=== PATIENT | female | born 1940 | race Caucasian/White ===

== ENCOUNTER 2022-04-14 09:44 | Day surgery (SDC) | payer MEDICARE ==
[~2022-04-14] VITALS: Ht 167.6 cm; Wt 79.0 kg
[2022-04-14] VITALS (7 sets, daily range): BP systolic 126–147; BP diastolic 53–68
[2022-04-14] MEDS ORDERED: normal saline 1000ml 1,000 ML IV PRN (10:15)
[2022-04-14] MEDS ORDERED: RIVA20TA PO (10:16)
[2022-04-14 10:34] LABS: BASOPHILS # (AUTO) 0.1 X10'3 (0-0.2); BASOPHILS % (AUTO) 1.4 % (0-1); EOSINOPHILS # (AUTO) 0.1 X10'3 (0-0.9); EOSINOPHILS % (AUTO) 1.5 % (0-6); HEMATOCRIT 39.7 % (35.0-45.0); HEMOGLOBIN 13.4 g/dl (12.0-16.0); LYMPHOCYTES # (AUTO) 1.4 X10'3 (1.1-4.8); LYMPHOCYTES % (AUTO) 23.4 % (21-51); MEAN CORPUSCULAR HEMOGLOBIN 30.7 PG (27.0-31.0); MEAN CORPUSCULAR HGB CONC 33.9 g/dL (33.0-36.5); MEAN CORPUSCULAR VOLUME 90.6 FL (78-98); MEAN PLATELET VOLUME 9.1 FL (7.4-10.4); MONOCYTES # (AUTO) 0.4 X10'3 (0-0.9); MONOCYTES % (AUTO) 6.8 % (2-12); NEUTROPHILS # (AUTO) 3.9 X10'3 (1.8-7.7); NEUTROPHILS % (AUTO) 66.9 % (42-75); PLATELET COUNT 201 X10'3 (140-440); RED BLOOD COUNT 4.38 X10'6 (4.20-5.60); RED CELL DISTRIBUTION WIDTH 13.4 % (11.5-14.5); WHITE BLOOD COUNT 5.9 X10'3 (4.5-11.0)
[2022-04-14 10:42] LABS: ALBUMIN 3.7 G/DL (3.4-5.0); ANION GAP 7 (8-16); BLOOD UREA NITROGEN 18 MG/DL (7-18); BUN/CREATININE RATIO 24.3 (6.6-38.0); CALCIUM 9.4 MG/DL (8.5-10.1); CHLORIDE 106 MMOL/L (99-107); CREATININE 0.74 MG/DL (0.40-0.90); GLUCOSE 109 MG/DL (70-104); POTASSIUM 4.3 MMOL/L (3.5-5.1); SODIUM 142 MMOL/L (135-145); TOTAL CARBON DIOXIDE 28.8 MMOL/L (24-32); eGFR 75 ML/MIN
[2022-04-14] MEDS ORDERED: ceFAZolin inj. 2,000 MG in normal saline soln 50 ML IV ONE (10:50)
[2022-04-14] MEDS ORDERED: VANCOMYCIN 1,500MG in NS 300 ML IVPB IV ONE (10:50)
[2022-04-14] MEDS ORDERED: LIDOCAINE 2% w/EPI 1:100:000 30mL injection MDV**cath lab 1 only ONE (11:58)
[2022-04-14] MEDS ORDERED: vancomycin 1,000mg inj ONE (11:58)
[2022-04-14] MEDS ORDERED: fentaNYL/PF 50MCG/1 ML 2ML syringe ONE (11:58)
[2022-04-14] MEDS ORDERED: midazolam 1 mg/ML 2ml injection ONE ×3 (11:58→13:07)
[2022-04-14] MEDS ORDERED: diphenhydrAMINE 50 mg/ml inj ONE (12:36)
[2022-04-14] MEDS ORDERED: amiodarone 50MG/ML inj IV ONE (13:07)
[2022-04-14] MEDS ORDERED: HYDROcodone/acetaminophen 5mg/325mg tablet PO PRN (14:35)
[2022-04-14] MEDS ORDERED: HYDROcodone/acetaminophen 10/325mg tab PO PRN (14:35)
== END 2022-04-14 15:27 | disposition home or self-care (01) ==
LOC: SSTAY O 09:44
PROVIDERS: ATTEND Internal Medicine Cardiovascular Disease
DX: I49.5 Sick sinus syndrome (principal); I48.0 Paroxysmal atrial fibrillation; Z79.899 Other long term (current) drug therapy; Z98.890 Other specified postprocedural states; Z90.49 Acquired absence of other specified parts of digestive tract; Z82.49 Family history of ischemic heart disease and other diseases of the circulatory system; Z83.3 Family history of diabetes mellitus; Z95.0 Presence of cardiac pacemaker; Z88.8 Allergy status to other drugs, medicaments and biological substances
CPT/HCPCS: 33208; 36415; 80048; 83735; 85025; 85610; 93005; 99152; 99153; C1785; J0282; J1200; J2250; J3010; J3370; J3490; J7030; J7040; A4565; A4620